=== PATIENT | female | born 1995 | race Caucasian/White ===

== ENCOUNTER 2019-08-06 12:43 | Outpatient (REF) | payer BC, SELFPAY ==
[2019-08-07 19:26] LABS: COVID-19 RT-PCR UVMMC Result Negative (Negative)
== END 2019-08-06 13:03 ==
LOC: LBN 12:43
PROVIDERS: Visit Provider Nurse Practitioner Adult Health
DX: Z11.59 Encounter for screening for other viral diseases (principal)
CPT/HCPCS: U0003